=== PATIENT | female | born 1970 | race African-American/Black ===

== ENCOUNTER 2017-02-11 02:59 | Emergency (ER) | payer MEDICAID ==
[~2017-02-11] VITALS: Ht 160 cm; Wt 159.0 kg
[2017-02-11] MEDS ORDERED: KETOROLAC 30MG/ML VIAL IV STA (03:59)
[2017-02-11] MEDS ORDERED: SODIUM CHLORIDE 0.9% 1,000 ML IV ONE (03:59)
[2017-02-11] MEDS ORDERED: ONDANSETRON HCL 4MG/2ML VIAL IV STA (03:59)
[2017-02-11 04:14] LABS: BASOPHILS % 0.3 % (0.0-2.0); EOSINOPHILS % 0.7 % (0.0-5.0); HEMATOCRIT. 40.9 % (36.0-48.0); HEMOGLOBIN. 14.3 g/dL (12.0-16.0); LYMPHOCYTES % 15.5 % (20.0-50.0); MEAN CORPUSCULAR VOLUME 91.7 fL (81.0-99.0); MEAN PLATELET VOLUME 7.2 fl (7.4-10.4); MONOCYTES % 4.6 % (2.0-8.0); NEUTROPHILS % 78.9 % (40.0-76.0); PLATELET 297 x1000/uL (130-400); RED BLOOD CELL COUNT 4.46 mill/uL (4.2-5.4); RED CELL DISTRIBUTION WIDTH 13.7 % (11.6-14.6)
[2017-02-11 04:23] LABS: HCG SCREEN NEGATIVE
[2017-02-11 04:26] LABS: CLARITY URINE CLEAR (CLEAR); COLOR URINE YELLOW (YELLOW); GLUCOSE URINE NEGATIVE (NEGATIVE); KETONES URINE TRACE (NEGATIVE); LEUKOCYTE ESTERASE URINE NEGATIVE (NEGATIVE); NITRITE URINE NEGATIVE (NEGATIVE); OCCULT BLOOD URINE 2+ (NEGATIVE); PROTEIN URINE NEGATIVE (NEGATIVE); SPECIFIC GRAVITY URINE 1.025 (1.005-1.030)
[2017-02-11 04:29] LABS: CARBON DIOXIDE 25 mEq/L (21-32); CHLORIDE 105 mEq/L (98-107)
[2017-02-11 07:04] VITALS: BP 104/58
== END 2017-02-11 07:40 | disposition home or self-care (01) ==
LOC: ER 03:02
DX: K52.9 Noninfective gastroenteritis and colitis, unspecified (principal); N85.2 Hypertrophy of uterus; Z98.84 Bariatric surgery status
CPT/HCPCS: 36415; 71010; 74176; 80053; 81001; 83690; 84703; 85025; 96361; 96374; 96375; 99285; J1885; J2405; J7030; Z7610

== ENCOUNTER 2019-02-14 20:56 | Emergency (ER) | payer MEDICAID, OTHER ==
[~2019-02-14] VITALS: Ht 170.2 cm; Wt 90.0 kg
[2019-02-14] MEDS ORDERED: SODIUM CHLORIDE 0.9% 1,000 ML IV ONE (21:21)
[2019-02-14 21:53] LABS: BASOPHILS % 0.9 % (0.0-2.0); EOSINOPHILS % 2.1 % (0.0-5.0); HEMATOCRIT. 37.2 % (36.0-48.0); HEMOGLOBIN. 12.3 g/dL (12.0-16.0); LYMPHOCYTES % 46.1 % (20.0-50.0); MEAN CORPUSCULAR VOLUME 93.7 fL (81.0-99.0); MEAN PLATELET VOLUME 7.1 fl (7.4-10.4); MONOCYTES % 4.5 % (2.0-8.0); NEUTROPHILS % 46.4 % (40.0-76.0); PLATELET 350 x1000/uL (130-400); RED BLOOD CELL COUNT 3.98 mill/uL (4.2-5.4); RED CELL DISTRIBUTION WIDTH 13.7 % (11.6-14.6)
[2019-02-14 21:59] LABS: CHLORIDE 106 mEq/L (98-107)
[2019-02-14 23:18] VITALS: BP 118/76
== END 2019-02-14 23:22 | disposition home or self-care (01) ==
LOC: ER 20:56
DX: I47.1 Supraventricular tachycardia (principal); Z98.84 Bariatric surgery status
CPT/HCPCS: 36415; 71045; 80053; 81025; 84484; 85025; 93005; 99284; J7030

== ENCOUNTER 2019-11-18 10:46 | Emergency (ER) | payer MEDICAID, OTHER ==
[~2019-11-18] VITALS: Ht 170.2 cm; Wt 80.0 kg
[2019-11-18] MEDS ORDERED: ADENOSINE 3 MG/ML 2ML VIAL IV ONE ×2 (11:15)
[2019-11-18 11:32] LABS: BASOPHILS % 0.6 % (0.0-2.0); EOSINOPHILS % 0.5 % (0.0-5.0); HEMATOCRIT. 41.4 % (36.0-48.0); HEMOGLOBIN. 14.6 g/dL (12.0-16.0); LYMPHOCYTES % 44.8 % (20.0-50.0); MEAN CORPUSCULAR HEMOGLOBIN 35.5 pg (28.0-32.0); MEAN CORPUSCULAR VOLUME 100.8 fL (81.0-99.0); MEAN PLATELET VOLUME 7.8 fl (7.4-10.4); MONOCYTES % 4.2 % (2.0-8.0); NEUTROPHILS % 49.9 % (40.0-76.0); PLATELET 299 x1000/uL (130-400)
[2019-11-18 11:40] LABS: CHLORIDE 107 mEq/L (98-107)
[2019-11-18 14:23] VITALS: BP 111/67
== END 2019-11-18 14:48 | disposition short-term general hospital (02) ==
LOC: ER 10:46
DX: I47.1 Supraventricular tachycardia (principal)
CPT/HCPCS: 36415; 71045; 80053; 83880; 84484; 85025; 93005; 96374; 99291; J0153

== ENCOUNTER 2025-03-05 17:37 | Emergency (ER) | payer OTHER ==
[~2025-03-05] VITALS: Ht 175.3 cm; Wt 113.0 kg
[2025-03-05 17:40] VITALS: O2SAT 99
[2025-03-05] MEDS ORDERED: LEVETIRACETAM 1,000MG in NACL 100ML PREMIX IV SCH (18:30)
[2025-03-05 19:21] LABS: BASOPHILS % 0.2 % (0.0-2.0); EOSINOPHILS % 1.1 % (0.0-5.0); HEMATOCRIT. 37.7 % (36.0-48.0); HEMOGLOBIN. 12.7 g/dL (12.0-16.0); LYMPHOCYTES % 31.8 % (20.0-50.0); MEAN CORPUSCULAR HEMOGLOBIN 32.3 pg (28.0-32.0); MEAN CORPUSCULAR HGB CONC 33.6 g/dL (31.0-37.0); MEAN CORPUSCULAR VOLUME 96.3 fL (81.0-99.0); MONOCYTES % 5.1 % (2.0-8.0); NEUTROPHILS % 61.8 % (40.0-76.0); PLATELET 233 x1000/uL (130-400); RED BLOOD CELL COUNT 3.91 mill/uL (4.2-5.4); RED CELL DISTRIBUTION WIDTH 13.5 % (11.6-14.6); WHITE BLOOD COUNT 3.7 x1000/uL (4.5-11.0)
[2025-03-05 19:27] LABS: CHLORIDE 108 mEq/L (98-107); POTASSIUM 4.5 mEq/L (3.5-5.1); SODIUM 143 mEq/L (136-145)
[2025-03-05 19:28] LABS: CARBON DIOXIDE 26 mEq/L (21-32)
[2025-03-05 19:29] LABS: CALCIUM 9.1 mg/dL (8.7-10.4)
[2025-03-05 19:33] LABS: CREATININE 1.2 mg/dL (0.6-1.0); GLUCOSE 94 mg/dL (70-105)
[2025-03-05 19:34] LABS: ETHANOL BLOOD < 10 mg/dL (<10); UREA NITROGEN BLOOD 13 mg/dL (9-23)
[2025-03-05] MEDS: LEVETIRACETAM 1000MG PREMIX 100 ML IV SCH (19:48)
[2025-03-05 19:54] LABS: CLARITY URINE CLEAR (CLEAR); COLOR URINE YELLOW (YELLOW); GLUCOSE URINE NEGATIVE (NEGATIVE); KETONES URINE TRACE (NEGATIVE); LEUKOCYTE ESTERASE URINE NEGATIVE (NEGATIVE); NITRITE URINE NEGATIVE (NEGATIVE); OCCULT BLOOD URINE NEGATIVE (NEGATIVE); PROTEIN URINE NEGATIVE (NEGATIVE)
[2025-03-05 20:33] LABS: *AMPHETAMINES SCREEN URINE NEGATIVE (NEGATIVE); *BARBITURATES SCREEN URINE NEGATIVE (NEGATIVE); *BENZODIAZEPINES SCREEN URINE NEGATIVE (NEGATIVE); *COCAINE SCREEN URINE NEGATIVE (NEGATIVE); CANNABINOID URINE SCREEN NEGATIVE (NEGATIVE); ECSTASY MDMA SCREEN URINE NEGATIVE (NEGATIVE); METHADONE URINE SCREEN NEGATIVE (NEGATIVE); OPIATES URINE SCREEN NEGATIVE (NEGATIVE); PHENCYCLIDINE URINE SCREEN NEGATIVE (NEGATIVE)
[2025-03-05 23:59] VITALS: BP 110/70; PULSE 79; RESP 20; TEMP 37.1; O2SAT 99
== END 2025-03-06 00:15 | disposition home or self-care (01) ==
LOC: ER 17:37 → EDBEDREQ 18:53 → ER 03-06 00:15 → ENRESERV 03-06 07:13
DX: R56.9 Unspecified convulsions (principal); F41.9 Anxiety disorder, unspecified; F32.A Depression, unspecified; Z79.899 Other long term (current) drug therapy; Z98.84 Bariatric surgery status
CPT/HCPCS: 80305; 80048; 81003; 80320; 85025; 36415; 70450; 96374; 99285; J1953; Z7610; 96372; G0480